=== PATIENT | male | born 1955 | race Caucasian/White ===

== ENCOUNTER 2018-08-28 08:22 | Day surgery (SDC) | payer OTHER ==
[2018-08-28] MEDS ORDERED: MIDAZOLAM 1 MG/ML 2 ML INJ ×2 (10:01)
[2018-08-28] MEDS ORDERED: FENTAnyl 50 MCG/ML VIAL (10:01)
== END 2018-08-28 13:46 | disposition home or self-care (01) ==
LOC: SUR 08:22 → GIL 08:26 → SUR 13:46
DX: Z12.11 Encounter for screening for malignant neoplasm of colon (principal); K21.9 Gastro-esophageal reflux disease without esophagitis; K29.70 Gastritis, unspecified, without bleeding; K64.8 Other hemorrhoids
CPT/HCPCS: 43239; 88305